=== PATIENT | male | born 1955 | race Caucasian/White ===

== ENCOUNTER 2020-04-12 20:38 | Emergency (ER) | payer MEDICARE, SELFPAY ==
[2020-04-12 20:50] VITALS: BP 237/123; PULSE 83; RESP 17; TEMP 36.7; O2SAT 99; BMI 25.1
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
[2020-04-12 21:27] VITALS: BP 189/100; PULSE 82; RESP 17; TEMP 36.7; O2SAT 99
== END 2020-04-12 21:38 | disposition home or self-care (01) ==
PROVIDERS: Emergency Provider Emergency Medicine
DX: T23.202A Burn of second degree of left hand, unspecified site, initial encounter (principal); T22.211A Burn of second degree of right forearm, initial encounter; T20.27XA Burn of second degree of neck, initial encounter; T20.29XA Burn of second degree of multiple sites of head, face, and neck, initial encounter; X16.XXXA Contact with hot heating appliances, radiators and pipes, initial encounter; Y92.89 Other specified places as the place of occurrence of the external cause; Z23 Encounter for immunization
CPT/HCPCS: 90471; 90714; 96372; 99281